=== PATIENT | female | born 1950 | race Caucasian/White ===

== ENCOUNTER 2017-02-16 06:36 | Day surgery (SDC) | payer OTHER ==
[~2017-02-16] VITALS: Ht 154.9 cm; Wt 57.1 kg
[2017-02-16 07:09] VITALS: BP 140/81
[2017-02-16 07:36] VITALS: BP 140/81
[2017-02-16 10:57] VITALS: BP 118/83
[2017-02-16 11:40] VITALS: BP 112/60
== END 2017-02-16 11:57 | disposition home or self-care (01) ==
LOC: SDC 06:36
DX: H35.341 Macular cyst, hole, or pseudohole, right eye (principal); F32.9 Major depressive disorder, single episode, unspecified; M19.90 Unspecified osteoarthritis, unspecified site; M41.9 Scoliosis, unspecified; M81.0 Age-related osteoporosis without current pathological fracture; Z85.828 Personal history of other malignant neoplasm of skin; F17.210 Nicotine dependence, cigarettes, uncomplicated
CPT/HCPCS: J0690; J1100; J1885; J2405; J3010; J3300